=== PATIENT | female | born 1980 | race Caucasian/White ===

== ENCOUNTER 2021-08-28 15:23 | Emergency (ER) | payer OTHER ==
[~2021-08-28] VITALS: Ht 162.6 cm; Wt 59.0 kg
[2021-08-28 15:45] VITALS: BP_SYST 127
== END 2021-08-28 18:20 | disposition left against medical advice (07) ==
LOC: SED 15:23
DX: G43.909 Migraine, unspecified, not intractable, without status migrainosus (principal); Z53.21 Procedure and treatment not carried out due to patient leaving prior to being seen by health care provider

== ENCOUNTER 2021-08-30 14:13 | Emergency (ER) | payer OTHER ==
[~2021-08-30] VITALS: Ht 160 cm; Wt 59.0 kg
[2021-08-30 14:17] VITALS: BP_SYST 123
[2021-08-30] MEDS ORDERED: TRAM50TA2 PO (14:50)
[2021-08-30] MEDS ORDERED: ONDA-8 TL (14:50)
[2021-08-30] MEDS ORDERED: KETOROLAC TROMETHAMINE 30 MG VIAL IM ONE (15:00)
[2021-08-30 15:25] VITALS: BP_SYST 123
== END 2021-08-30 15:30 | disposition home or self-care (01) ==
LOC: SED 14:13
DX: G43.909 Migraine, unspecified, not intractable, without status migrainosus (principal)
CPT/HCPCS: 81025; 96372; 99283; J1885